=== PATIENT | female | born 1930 | race Caucasian/White ===

== ENCOUNTER 2021-05-10 16:15 | Inpatient (IN) ==
[2021-05-10] MEDS ORDERED: Albuterol 2.5 MG/3 ML NEBULIZER IH PRN (19:44)
[2021-05-10] MEDS: Apixaban 2.5 MG TABLET PO SCH (21:00)
[2021-05-10] MEDS: ALPRAZolam 1 MG TABLET PO SCH (21:00)
[2021-05-11 05:05] LABS: Basophils % 0.7 %; Eosinophils # 0.1 K/mcL (0.0-0.6); Eosinophils % 2.4 %; Hematocrit 24.4 % (35.3-44.9); Hemoglobin 7.9 g/dL (11.5-15.4); Immature Granulocytes % 1.7 % (0-4); Lymphocytes % 32.4 %; Mean Corpuscular HGB Conc 32.4 g/dL (31.6-35.5); Mean Corpuscular Hemoglobin 32.1 pg (28.0-33.3); Mean Corpuscular Volume 99.2 fL (83.0-100.0); Mean Platelet Volume 10.1 fL (9.4-12.4); Monocytes # 0.4 K/mcL (0.0-1.3); Monocytes % 14.2 %; Red Blood Count 2.46 M/mcL (3.82-4.97); Red Cell Distribution Width 14.3 % (11.5-14.5); Segmented Neutrophils % 48.6 %
[2021-05-11 05:14] LABS: Neutrophils # 1.5 K/mcL (1.6-8.9)
[2021-05-11 05:16] LABS: Platelet Count 215 K/mcL (140-400)
[2021-05-11 05:21] LABS: BUN/Creatinine Ratio 22 (6-26); Blood Urea Nitrogen 13 mg/dL (8-23); Calcium 8.2 mg/dL (8.6-10.3); Carbon Dioxide 25 mEq/L (23-29); Chloride 103 mEq/L (98-107); Glucose 94 mg/dL (70-105); Osmolality,Calculated 284 (280-300); Potassium 3.9 mEq/L (3.5-5.1); Sodium 137 mEq/L (136-145); eGFR For African Americans > 60 (> 60); eGFR For Non-African Americans > 60 (> 60)
[2021-05-11] MEDS: Sennosides/Docusate Sodium TABLET PO SCH (08:58)
[2021-05-11] MEDS: Metoprolol XL (24 HR) Succ 25 MG TAB.ER.24H PO SCH (09:05)
[2021-05-11] MEDS: Apixaban 2.5 MG TABLET PO SCH ×2 (09:05→22:07)
[2021-05-11] MEDS: Ascorbic Acid 500 MG TABLET PO SCH ×2 (09:05→16:18)
[2021-05-11] MEDS: Multivit/Ca/Min/Fe/FA 1 TAB TABLET PO SCH (09:05)
[2021-05-11] MEDS: Aspirin Enteric Coated 81 MG Tablet PO SCH (09:05)
[2021-05-11] MEDS: Fluticasone Propionate Nasal 50 MCG/SPRAY BOTTLE NS SCH (09:06)
[2021-05-11] MEDS: ALPRAZolam 1 MG TABLET PO SCH (22:07)
[2021-05-12] MEDS: Sennosides/Docusate Sodium TABLET PO SCH (09:22)
[2021-05-12] MEDS: Ascorbic Acid 500 MG TABLET PO SCH ×2 (09:22→15:06)
[2021-05-12] MEDS: Multivit/Ca/Min/Fe/FA 1 TAB TABLET PO SCH (09:23)
[2021-05-12] MEDS: Apixaban 2.5 MG TABLET PO SCH ×2 (09:23→20:58)
[2021-05-12] MEDS: Aspirin Enteric Coated 81 MG Tablet PO SCH (09:23)
[2021-05-12] MEDS: Fluticasone Propionate Nasal 50 MCG/SPRAY BOTTLE NS SCH (09:23)
[2021-05-12] MEDS: Metoprolol XL (24 HR) Succ 25 MG TAB.ER.24H PO SCH (09:23)
[2021-05-12] MEDS ORDERED: Nitroglycerin 0.4 MG TAB.SUBL SL PRN (11:09)
[2021-05-12 11:33] LABS: Hematocrit 26.7 % (35.3-44.9); Hemoglobin 8.7 g/dL (11.5-15.4); Mean Corpuscular HGB Conc 32.6 g/dL (31.6-35.5); Mean Corpuscular Hemoglobin 32.3 pg (28.0-33.3); Mean Corpuscular Volume 99.3 fL (83.0-100.0); Mean Platelet Volume 9.7 fL (9.4-12.4); Platelet Count 274 K/mcL (140-400); Red Blood Count 2.69 M/mcL (3.82-4.97); Red Cell Distribution Width 14.6 % (11.5-14.5); White Blood Count 4.1 K/mcL (4.3-11.1)
[2021-05-12 11:52] LABS: BUN/Creatinine Ratio 23 (6-26); Blood Urea Nitrogen 15 mg/dL (8-23); Calcium 8.5 mg/dL (8.6-10.3); Carbon Dioxide 26 mEq/L (23-29); Chloride 102 mEq/L (98-107); Glucose 102 mg/dL (70-105); Magnesium 1.8 mg/dL (1.6-2.6); Osmolality,Calculated 285 (280-300); Potassium 3.8 mEq/L (3.5-5.1); Sodium 137 mEq/L (136-145); eGFR For African Americans > 60 (> 60); eGFR For Non-African Americans > 60 (> 60)
[2021-05-12] MEDS: ALPRAZolam 1 MG TABLET PO SCH (20:57)
[2021-05-13 06:05] LABS: Basophils % 0.9 %; Eosinophils # 0.1 K/mcL (0.0-0.6); Eosinophils % 2.1 %; Hematocrit 26.1 % (35.3-44.9); Hemoglobin 8.3 g/dL (11.5-15.4); Immature Granulocytes % 1.8 % (0-4); Lymphocytes % 31.5 %; Mean Corpuscular HGB Conc 31.8 g/dL (31.6-35.5); Mean Corpuscular Hemoglobin 32.2 pg (28.0-33.3); Mean Corpuscular Volume 101.2 fL (83.0-100.0); Monocytes # 0.5 K/mcL (0.0-1.3); Monocytes % 15.5 %; Neutrophils # 1.6 K/mcL (1.6-8.9); Platelet Count 282 K/mcL (140-400); Red Blood Count 2.58 M/mcL (3.82-4.97); Red Cell Distribution Width 14.6 % (11.5-14.5); Segmented Neutrophils % 48.2 %; White Blood Count 3.3 K/mcL (4.3-11.1)
[2021-05-13 06:27] LABS: Alanine Aminotransferase 51 Units/L (7-52); Alkaline Phosphatase 78 Units/L (34-104); Aspartate Amino Transferase 38 Units/L (13-39); BUN/Creatinine Ratio 23 (6-26); Bilirubin,Total 0.7 mg/dL (0.3-1.0); Blood Urea Nitrogen 15 mg/dL (8-23); Calcium 8.5 mg/dL (8.6-10.3); Carbon Dioxide 29 mEq/L (23-29); Chloride 104 mEq/L (98-107); Globulin 2.9 g/dL (2.4-3.5); Glucose 102 mg/dL (70-105); Osmolality,Calculated 291 (280-300); Potassium 3.7 mEq/L (3.5-5.1); Sodium 140 mEq/L (136-145); Total Protein 5.9 g/dL (6.4-8.9); eGFR For African Americans > 60 (> 60); eGFR For Non-African Americans > 60 (> 60)
[2021-05-13] MEDS: Aspirin Enteric Coated 81 MG Tablet PO SCH (07:47)
[2021-05-13] MEDS: Sennosides/Docusate Sodium TABLET PO SCH (07:47)
[2021-05-13] MEDS: Multivit/Ca/Min/Fe/FA 1 TAB TABLET PO SCH (07:47)
[2021-05-13] MEDS: Metoprolol XL (24 HR) Succ 25 MG TAB.ER.24H PO SCH (07:47)
[2021-05-13] MEDS: Ascorbic Acid 500 MG TABLET PO SCH ×2 (07:47→16:05)
[2021-05-13] MEDS: Apixaban 2.5 MG TABLET PO SCH ×2 (07:47→23:00)
[2021-05-13] MEDS: Fluticasone Propionate Nasal 50 MCG/SPRAY BOTTLE NS SCH (07:48)
[2021-05-13] MEDS: ALPRAZolam 1 MG TABLET PO SCH (23:00)
[2021-05-14] MEDS: Apixaban 2.5 MG TABLET PO SCH ×2 (08:03→20:25)
[2021-05-14] MEDS: Sennosides/Docusate Sodium TABLET PO SCH (08:03)
[2021-05-14] MEDS: Metoprolol XL (24 HR) Succ 25 MG TAB.ER.24H PO SCH (08:03)
[2021-05-14] MEDS: Multivit/Ca/Min/Fe/FA 1 TAB TABLET PO SCH (08:03)
[2021-05-14] MEDS: Aspirin Enteric Coated 81 MG Tablet PO SCH (08:03)
[2021-05-14] MEDS: Ascorbic Acid 500 MG TABLET PO SCH ×2 (08:03→16:59)
[2021-05-14] MEDS: Fluticasone Propionate Nasal 50 MCG/SPRAY BOTTLE NS SCH (08:04)
[2021-05-14] MEDS: ALPRAZolam 1 MG TABLET PO SCH (20:25)
[2021-05-14] MEDS: Melatonin 3 MG TABLET PO PRN (22:15)
[2021-05-15] MEDS: Ascorbic Acid 500 MG TABLET PO SCH ×2 (08:23→16:57)
[2021-05-15] MEDS: Multivit/Ca/Min/Fe/FA 1 TAB TABLET PO SCH (08:23)
[2021-05-15] MEDS: Aspirin Enteric Coated 81 MG Tablet PO SCH (08:23)
[2021-05-15] MEDS: Sennosides/Docusate Sodium TABLET PO SCH (08:23)
[2021-05-15] MEDS: Apixaban 2.5 MG TABLET PO SCH ×2 (08:23→20:31)
[2021-05-15] MEDS: Metoprolol XL (24 HR) Succ 25 MG TAB.ER.24H PO SCH (08:23)
[2021-05-15] MEDS: Fluticasone Propionate Nasal 50 MCG/SPRAY BOTTLE NS SCH (14:28)
[2021-05-15] MEDS: Melatonin 3 MG TABLET PO PRN (20:30)
[2021-05-15] MEDS: traZODone 50 MG TABLET PO PRN (20:31)
[2021-05-15] MEDS: ALPRAZolam 1 MG TABLET PO SCH (20:31)
[2021-05-16] MEDS: Multivit/Ca/Min/Fe/FA 1 TAB TABLET PO SCH (08:49)
[2021-05-16] MEDS: Aspirin Enteric Coated 81 MG Tablet PO SCH (08:49)
[2021-05-16] MEDS: Apixaban 2.5 MG TABLET PO SCH ×2 (08:49→20:50)
[2021-05-16] MEDS: Ascorbic Acid 500 MG TABLET PO SCH ×2 (08:49→17:25)
[2021-05-16] MEDS: Metoprolol XL (24 HR) Succ 25 MG TAB.ER.24H PO SCH (08:49)
[2021-05-16] MEDS: Sennosides/Docusate Sodium TABLET PO SCH (08:49)
[2021-05-16] MEDS: Fluticasone Propionate Nasal 50 MCG/SPRAY BOTTLE NS SCH (08:57)
[2021-05-16] MEDS: Melatonin 3 MG TABLET PO PRN (20:50)
[2021-05-16] MEDS: ALPRAZolam 1 MG TABLET PO SCH (20:50)
[2021-05-16] MEDS: traZODone 50 MG TABLET PO PRN (20:51)
[2021-05-17] MEDS: Sennosides/Docusate Sodium TABLET PO SCH (09:05)
[2021-05-17] MEDS: Aspirin Enteric Coated 81 MG Tablet PO SCH (09:05)
[2021-05-17] MEDS: Ascorbic Acid 500 MG TABLET PO SCH ×2 (09:05→16:18)
[2021-05-17] MEDS: Apixaban 2.5 MG TABLET PO SCH ×2 (09:05→20:24)
[2021-05-17] MEDS: Multivit/Ca/Min/Fe/FA 1 TAB TABLET PO SCH (09:06)
[2021-05-17] MEDS: Fluticasone Propionate Nasal 50 MCG/SPRAY BOTTLE NS SCH (09:06)
[2021-05-17] MEDS: Metoprolol XL (24 HR) Succ 25 MG TAB.ER.24H PO SCH (09:06)
[2021-05-17] MEDS: ALPRAZolam 1 MG TABLET PO SCH (20:23)
[2021-05-17] MEDS: traZODone 50 MG TABLET PO PRN (20:24)
[2021-05-17] MEDS: Melatonin 3 MG TABLET PO PRN (20:24)
[2021-05-18] MEDS: Multivit/Ca/Min/Fe/FA 1 TAB TABLET PO SCH (07:31)
[2021-05-18] MEDS: Metoprolol XL (24 HR) Succ 25 MG TAB.ER.24H PO SCH (07:32)
[2021-05-18] MEDS: Fluticasone Propionate Nasal 50 MCG/SPRAY BOTTLE NS SCH (07:32)
[2021-05-18] MEDS: Sennosides/Docusate Sodium TABLET PO SCH (07:32)
[2021-05-18] MEDS: Ascorbic Acid 500 MG TABLET PO SCH ×2 (07:32→17:17)
[2021-05-18] MEDS: Apixaban 2.5 MG TABLET PO SCH ×2 (07:32→19:49)
[2021-05-18] MEDS: Aspirin Enteric Coated 81 MG Tablet PO SCH (07:32)
[2021-05-18] MEDS: ALPRAZolam 1 MG TABLET PO SCH (19:49)
[2021-05-18] MEDS: traZODone 50 MG TABLET PO PRN (19:59)
[2021-05-18] MEDS: Melatonin 3 MG TABLET PO PRN (20:00)
[2021-05-19 06:13] LABS: Hematocrit 26.2 % (35.3-44.9); Hemoglobin 7.9 g/dL (11.5-15.4); Mean Corpuscular HGB Conc 30.2 g/dL (31.6-35.5); Mean Corpuscular Hemoglobin 32.1 pg (28.0-33.3); Mean Corpuscular Volume 106.5 fL (83.0-100.0); Mean Platelet Volume 10.1 fL (9.4-12.4); Platelet Count 329 K/mcL (140-400); Red Blood Count 2.46 M/mcL (3.82-4.97); Red Cell Distribution Width 16.6 % (11.5-14.5); White Blood Count 4.6 K/mcL (4.3-11.1)
[2021-05-19 06:56] LABS: Alanine Aminotransferase 20 Units/L (7-52); Albumin/Globulin Ratio 1.2 (1.1-2.2); Alkaline Phosphatase 66 Units/L (34-104); Aspartate Amino Transferase 37 Units/L (13-39); BUN/Creatinine Ratio 25 (6-26); Bilirubin,Total 0.4 mg/dL (0.3-1.0); Blood Urea Nitrogen 16 mg/dL (8-23); Calcium 8.1 mg/dL (8.6-10.3); Carbon Dioxide 24 mEq/L (23-29); Chloride 107 mEq/L (98-107); Globulin 2.5 g/dL (2.4-3.5); Glucose 78 mg/dL (70-105); Osmolality,Calculated 290 (280-300); Potassium 4.6 mEq/L (3.5-5.1); Sodium 140 mEq/L (136-145); Total Protein 5.5 g/dL (6.4-8.9); eGFR For African Americans > 60 (> 60); eGFR For Non-African Americans > 60 (> 60)
[2021-05-19] MEDS: Apixaban 2.5 MG TABLET PO SCH ×2 (07:58→20:16)
[2021-05-19] MEDS: Aspirin Enteric Coated 81 MG Tablet PO SCH (07:58)
[2021-05-19] MEDS: Sennosides/Docusate Sodium TABLET PO SCH (07:58)
[2021-05-19] MEDS: Multivit/Ca/Min/Fe/FA 1 TAB TABLET PO SCH (07:58)
[2021-05-19] MEDS: Ascorbic Acid 500 MG TABLET PO SCH ×2 (07:58→17:24)
[2021-05-19] MEDS: Metoprolol XL (24 HR) Succ 25 MG TAB.ER.24H PO SCH (07:58)
[2021-05-19] MEDS: Fluticasone Propionate Nasal 50 MCG/SPRAY BOTTLE NS SCH (17:10)
[2021-05-19] MEDS: Melatonin 3 MG TABLET PO PRN (20:15)
[2021-05-19] MEDS: ALPRAZolam 1 MG TABLET PO SCH (20:16)
[2021-05-19] MEDS: traZODone 50 MG TABLET PO PRN (20:17)
[2021-05-20] MEDS: Fluticasone Propionate Nasal 50 MCG/SPRAY BOTTLE NS SCH (07:46)
[2021-05-20] MEDS: Multivit/Ca/Min/Fe/FA 1 TAB TABLET PO SCH (07:47)
[2021-05-20] MEDS: Sennosides/Docusate Sodium TABLET PO SCH (07:47)
[2021-05-20] MEDS: Aspirin Enteric Coated 81 MG Tablet PO SCH (07:47)
[2021-05-20] MEDS: Apixaban 2.5 MG TABLET PO SCH ×2 (07:47→20:52)
[2021-05-20] MEDS: Metoprolol XL (24 HR) Succ 25 MG TAB.ER.24H PO SCH (07:48)
[2021-05-20] MEDS: Ascorbic Acid 500 MG TABLET PO SCH ×2 (07:48→15:54)
[2021-05-20] MEDS: ALPRAZolam 1 MG TABLET PO SCH (20:53)
[2021-05-20] MEDS: Melatonin 3 MG TABLET PO PRN (20:53)
[2021-05-20] MEDS: traZODone 50 MG TABLET PO PRN (20:53)
[2021-05-21 07:26] VITALS: BP 110/74; PULSE 82; RESP 18; TEMP 98; O2SAT 93
[2021-05-21] MEDS: Aspirin Enteric Coated 81 MG Tablet PO SCH (07:48)
[2021-05-21] MEDS: Sennosides/Docusate Sodium TABLET PO SCH (07:48)
[2021-05-21] MEDS: Multivit/Ca/Min/Fe/FA 1 TAB TABLET PO SCH (07:48)
[2021-05-21] MEDS: Apixaban 2.5 MG TABLET PO SCH (07:48)
[2021-05-21] MEDS: Ascorbic Acid 500 MG TABLET PO SCH (07:48)
[2021-05-21] MEDS: Metoprolol XL (24 HR) Succ 25 MG TAB.ER.24H PO SCH (07:49)
[2021-05-21 10:51] LABS: Basophils # 0.1 K/mcL (0.0-0.2); Basophils % 1.6 %; Eosinophils # 0.2 K/mcL (0.0-0.6); Eosinophils % 2.7 %; Hematocrit 29.5 % (35.3-44.9); Hemoglobin 9.2 g/dL (11.5-15.4); Immature Granulocytes % 0.9 % (0-4); Lymphocytes % 17.5 %; Mean Corpuscular HGB Conc 31.2 g/dL (31.6-35.5); Mean Corpuscular Hemoglobin 32.5 pg (28.0-33.3); Mean Corpuscular Volume 104.2 fL (83.0-100.0); Mean Platelet Volume 9.7 fL (9.4-12.4); Monocytes # 0.7 K/mcL (0.0-1.3); Monocytes % 11.7 %; Neutrophils # 3.6 K/mcL (1.6-8.9); Platelet Count 302 K/mcL (140-400); Red Blood Count 2.83 M/mcL (3.82-4.97); Red Cell Distribution Width 17.5 % (11.5-14.5); Segmented Neutrophils % 65.6 %; White Blood Count 5.5 K/mcL (4.3-11.1)
[2021-05-21 11:10] LABS: BUN/Creatinine Ratio 23 (6-26); Blood Urea Nitrogen 15 mg/dL (8-23); Calcium 8.6 mg/dL (8.6-10.3); Carbon Dioxide 29 mEq/L (23-29); Chloride 101 mEq/L (98-107); Glucose 122 mg/dL (70-105); Osmolality,Calculated 288 (280-300); Potassium 3.3 mEq/L (3.5-5.1); Sodium 138 mEq/L (136-145); eGFR For African Americans > 60 (> 60); eGFR For Non-African Americans > 60 (> 60)
[2021-05-21] MEDS: Fluticasone Propionate Nasal 50 MCG/SPRAY BOTTLE NS SCH (12:38)
[2021-05-21 13:10] LABS: Iron 41 mcg/dL (50-170)
[2021-05-21 14:33] LABS: Folate > 22.3 ng/mL (3.0-16.0)
== END 2021-05-21 14:52 | disposition home health service (06) | DRG 308 ==
LOC: INPGRE 20:01
PROVIDERS: ADMIT Family Medicine; ATTEND Family Medicine